=== PATIENT | male | born 1955 | race Caucasian/White ===

== ENCOUNTER → 2018-09-11 | Outpatient (CLI) | payer BC ==
[2018-09-11] VITALS (10 sets, daily range): BP systolic 104–129; BP diastolic 71–87; PULSE 71–88
[~2018-09-11] VITALS: Ht 172.7 cm; Wt 92.7 kg
[~2018-09-11] MED LIST: FERROUS SU325 MG/TAB PO; LIPITOR 10MG10 MG PO; LUPRON; PRINZIDE 12.5 M1 TAB PO
--- NOTE | 2018-09-11 13:45 | NUR ---
PT ON THE TABLE, MONITORING EQUIPMENT PLACED. TIME OUT DONE.
--- NOTE | 2018-09-11 14:00 | NUR ---
PT DOING WELL.
--- NOTE | 2018-09-11 14:05 | NUR ---
PT WAS GIVEN VERSED1 MG AND [id number] MCG
--- NOTE | 2018-09-11 14:20 | NUR ---
PROCEDURE ENDED. PT ASSISTED INTO WHEELCHAIR. SITE IS [facility]. GAIT STEADY.
--- NOTE | 2018-09-11 15:00 | NUR ---
PT TAKEN DOWN TO POV IN WHEELCHAIR. DENIES PAIN OR NEEDS.
== END ==
LOC: COL.RAD 12:30
DX: C61 Malignant neoplasm of prostate (principal); C79.51 Secondary malignant neoplasm of bone; I10 Essential (primary) hypertension